=== PATIENT | male | born 1980 | race Caucasian/White ===

== ENCOUNTER 2019-10-31 17:04 | Emergency (ER) | payer SELFPAY ==
[~2019-10-31] VITALS: Ht 175.3 cm; Wt 88.0 kg
[2019-10-31 17:05] VITALS: Ht 175.3 cm; Wt 88.0 kg
[2019-10-31 18:23] LABS: CALCIUM 8.3 mg/dL (8.5-10.1); CARBON DIOXIDE 27.4 mmol/L (21-32); CHLORIDE SERUM 100 mmol/L (98-107); CREATININE SERUM 0.9 mg/dL (0.7-1.3); GFR1 > 60 mL/min; GLUCOSE SERUM 217 mg/dL (74-106); POTASSIUM SERUM 3.8 mmol/L (3.5-5.1); SODIUM SERUM 135 mmol/L (136-145)
[2019-10-31 18:27] LABS: ALKALINE PHOSPHATASE 93 U/L (46-116); ALT/SGPT 42 U/L (16-63); AST/SGOT 35 U/L (15-37); BILIRUBIN TOTAL 0.2 mg/dL (0.20-1.00); MAGNESIUM 1.8 mg/dL (1.8-2.4); TOTAL PROTEIN, SERUM 7.4 g/dL (6.4-8.2)
[2019-10-31 18:32] LABS: ALBUMIN 2.9 g/dL (3.4-5.0)
[2019-10-31 18:47] LABS: microscopic required? NO
[2019-10-31 18:55] LABS: UA SPECIFIC GRAVITY >=1.030 (1.005-1.035); urine erythrocyte NEGATIVE (NEGATIVE)
[2019-10-31 19:28] VITALS: BP 133/74
== END 2019-10-31 19:20 | disposition home or self-care (01) ==
LOC: ED 17:04
PROVIDERS: Specialist
DX: R11.10 Vomiting, unspecified (principal); E86.0 Dehydration
CPT/HCPCS: G0480; J7030; Q0162